=== PATIENT | male | born 1950 | race Hispanic/Latino ===

== ENCOUNTER 2022-07-04 06:52 | Day surgery (SDC) | payer OTHER ==
[2022-07-02 12:38] LABS: BASOPHILS % (AUTO) 0.4 % (0.0-5.0); EOSINOPHILS % (AUTO) 0.8 % (0.0-8.0); HEMATOCRIT 44.3 % (42-54); LYMPHOCYTES % (AUTO) 12.7 % (21.0-51.0); MEAN CORPUSCULAR HEMOGLOBIN 29.1 pg (27.0-33.0); MEAN CORPUSCULAR HGB CONC 32.7 g/dL (32.0-36.0); MONOCYTES % (AUTO) 5.6 % (3.0-13.0); NEUTROPHILS % (AUTO) 79.7 % (40.0-77.0); PLATELET COUNT (AUTO) 214 K/uL (130-400); RED BLOOD CELL COUNT(AUTO) 4.98 MIL/uL (4.50-6.20); RED CELL DISTRIBUTION WIDTH 12.3 % (11.0-15.5); WHITE BLOOD COUNT (AUTO) 9.6 K/uL (4.8-10.8)
[2022-07-02 12:39] VITALS: BP 149/66
[2022-07-02 13:00] LABS: CREATININE 0.9 mg/dL (0.5-1.5); POTASSIUM 3.9 mmol/L (3.5-5.1)
[~2022-07-04] VITALS: Ht 172.7 cm; Wt 66.6 kg
[2022-07-04] VITALS (19 sets, daily range): BP systolic 128–157; BP diastolic 56–81
[~2022-07-04 06:52] MED LIST: CEFAZOLIN SODIUM 1 GM VIAL IVPB SCH; LOSA25TA41 PO; ROSU10TA28 PO; TAMS-1 PO
[2022-07-04] MEDS ORDERED: LACTATED RINGERS 1000ML 1,000 ML IV ONE (07:37)
[2022-07-04] MEDS: CEFTRIAXONE 1G VIAL ONE ×2 (07:47→09:44)
[2022-07-04] MEDS ORDERED: LIDOCAINE PF 100MG/5ML (2%) SYRINGE 5ML ONE (07:50)
[2022-07-04] MEDS ORDERED: MIDAZOLAM HCL 1 MG/ML 2ML VIAL ONE (07:50)
[2022-07-04] MEDS ORDERED: ONDANSETRON 4MG INJ ONE (07:50)
[2022-07-04] MEDS ORDERED: DEXAMETHASONE SOD PHOSPHATE 10MG/ML 1ML VIAL ONE (07:50)
[2022-07-04] MEDS ORDERED: SUCCINYLCHOLINE 200MG/10ML SYR ONE (07:50)
[2022-07-04] MEDS ORDERED: ROCURONIUM 10MG/1ML SYR 10 MG/ML ML ONE (07:51)
[2022-07-04] MEDS ORDERED: GLYCOPYRROLATE 1 MG/5 ML SYRINGE ONE (07:51)
[2022-07-04] MEDS ORDERED: FENTANYL CITRATE PF 50 MCG/1 ML 2ML VIAL ONE (07:51)
[2022-07-04] MEDS ORDERED: NEOSTIGMINE 5MG/5ML SYR IV ONE (07:51)
[2022-07-04] MEDS ORDERED: PROPOFOL 10 MG/ML 20ML VIAL IV ONE (07:51)
[2022-07-04] MEDS ORDERED: MEPERIDINE-PF 25 MG/ML SYG ONE (11:25)
[2022-07-04] MEDS ORDERED: PHENAZOPYRIDINE HCL 200 MG TABLET ONE (12:21)
== END 2022-07-04 12:55 | disposition home or self-care (01) ==
LOC: DAH 06:52
PROVIDERS: ATTEND Urology
DX: N40.1 Benign prostatic hyperplasia with lower urinary tract symptoms (principal); Z20.822 Contact with and (suspected) exposure to COVID-19; N21.0 Calculus in bladder; N32.89 Other specified disorders of bladder; R33.8 Other retention of urine; I10 Essential (primary) hypertension; K21.9 Gastro-esophageal reflux disease without esophagitis; Z87.891 Personal history of nicotine dependence; Z98.890 Other specified postprocedural states; Z82.49 Family history of ischemic heart disease and other diseases of the circulatory system; Z80.42 Family history of malignant neoplasm of prostate
CPT/HCPCS: 80048; 85025; 87426; 36415; 93005; 52648; A6260; A4663; J7120 ×2; A4354; J3010; J0330; J3490; J1100; J2710; J2001; J0696; J2250; J2704; J2405; J2175; A4358; A4215; A4223; A4222; A4221; A4510; A4600

== ENCOUNTER 2023-10-16 07:45 | Day surgery (SDC) | payer OTHER ==
[2023-10-14 12:32] LABS: BASOPHILS # (AUTO) 0.02 K/uL (0.00-0.20); BASOPHILS % (AUTO) 0.3 % (0.0-5.0); EOSINOPHILS # (AUTO) 0.07 K/uL (0.00-0.70); HEMATOCRIT 46.4 % (42-54); IMMATURE GRANULOCYTE ABSOLUTE 0.02 K/uL (0-1); LYMPHOCYTES # (AUTO) 1.1 K/uL (1.0-4.8); LYMPHOCYTES % (AUTO) 16.4 % (21.0-51.0); MEAN CORPUSCULAR HEMOGLOBIN 29.8 pg (27.0-33.0); MEAN CORPUSCULAR HGB CONC 33.8 g/dL (32.0-36.0); MEAN CORPUSCULAR VOLUME 88.2 fL (79-99); MONOCYTES # (AUTO) 0.4 K/uL (0.1-1.0); MONOCYTES % (AUTO) 6.3 % (3.0-13.0); NEUTROPHILS # (AUTO) 5.2 K/uL (1.8-7.7); NEUTROPHILS % (AUTO) 75.7 % (40.0-77.0); PLATELET COUNT (AUTO) 141 K/uL (130-400); RED BLOOD CELL COUNT(AUTO) 5.26 MIL/uL (4.50-6.20); RED CELL DISTRIBUTION WIDTH 12.4 % (11.0-15.5); WHITE BLOOD COUNT (AUTO) 6.9 K/uL (4.8-10.8)
[2023-10-14 12:38] LABS: CREATININE 0.8 mg/dL (0.5-1.3); POTASSIUM 3.9 mmol/L (3.5-5.1)
[2023-10-14 12:45] VITALS: BP 148/60; PULSE 59; RESP 18
[~2023-10-16] VITALS: Ht 167.6 cm; Wt 69.8 kg
[2023-10-16] VITALS (15 sets, daily range): BP systolic 102–153; BP diastolic 51–63; PULSE 51–64; RESP 13–17
[~2023-10-16 07:45] MED LIST changes: -CEFAZOLIN SODIUM 1 GM VIAL IVPB SCH; +OMEP20CA12 PO; -ROSU10TA28 PO; +ROSU10TA72 PO
[2023-10-16] MEDS: LACTATED RINGERS 1000ML 1,000 ML IV ONE (08:31)
[2023-10-16] MEDS: CEFTRIAXONE 1G VIAL ONE (08:31)
[2023-10-16] MEDS ORDERED: ACETAMINOPHEN 1,000 MG/100 ML VIAL IV ONE (08:56)
[2023-10-16] MEDS ORDERED: FAMOTIDINE 20MG VIAL IV ONE (08:56)
[2023-10-16] MEDS ORDERED: PROPOFOL 10 MG/ML 20ML VIAL IV ONE (08:58)
[2023-10-16] MEDS ORDERED: ROCURONIUM BROMIDE 10MG/1ML 5ML VL ONE (08:58)
[2023-10-16] MEDS ORDERED: FENTANYL CITRATE PF 50 MCG/1 ML 2ML VIAL ONE (08:58)
[2023-10-16] MEDS ORDERED: LIDOCAINE PF 100MG/5ML (2%) SYRINGE 5ML ONE (08:58)
[2023-10-16] MEDS ORDERED: DEXAMETHASONE SOD PHOSPHATE 10MG/ML 1ML VIAL ONE (09:17)
[2023-10-16] MEDS ORDERED: ONDANSETRON 4MG INJ ONE (09:17)
[2023-10-16] MEDS ORDERED: NEOSTIGMINE METHYLSULFATE 1MG/ML IV ONE (10:04)
[2023-10-16] MEDS ORDERED: GLYCOPYRROLATE 0.2 MG/ML 5 ML VIAL ONE (10:04)
[2023-10-16] MEDS: PHENAZOPYRIDINE HCL 200 MG TABLET PO ONE (11:19)
== END 2023-10-16 12:05 | disposition home or self-care (01) ==
LOC: DAH 07:45
PROVIDERS: ATTEND Urology
DX: N40.1 Benign prostatic hyperplasia with lower urinary tract symptoms (principal); R39.12 Poor urinary stream; N30.20 Other chronic cystitis without hematuria; I10 Essential (primary) hypertension; K21.9 Gastro-esophageal reflux disease without esophagitis; Z79.899 Other long term (current) drug therapy; Z79.01 Long term (current) use of anticoagulants
CPT/HCPCS: 93005; 80048; 85025; 36415; 52648; A6260; A4663; J7120 ×2; A4354; A4340; J3490 ×3; J3010; J1100; J2001; J0696; J2704; J2405; J2710; A4358; A4215; A4223; A4222; A4221; A4600